=== PATIENT | male | born 1990 | race Caucasian/White ===

== ENCOUNTER 2017-02-09 10:15 | Inpatient (IN) | payer OTHER ==
[~2017-02-09] VITALS: Ht 177.8 cm; Wt 75.0 kg
--- NOTE | ~2017-02-09 | CR63 ---
[facility] A Service of [facility] & [facility] RADIOLOGY TEXT RESULTS PATIENT: JOSEFINA HUFF LOCATION: [place] [id number] : [birth year] UNIT #: [id number] AGE: [address]: Veronica Mackay MD SEX: M ORDER DR: [id number] [facility] [address] [facility]. [place], [place] [address] [id number] I MR#: [id number] Acc #: [id number] NAME: JOSEFINA HUFF. : 1990 SEX: M STUDY DATE/TIME: 02/10/2017 12:19 UNIT: [facility] ROOM: [facility] STUDY DESCRIPTION: CR Chest 2 View Attending Physician: Veronica Mackay M.D. Ordering Physician: Veronica Mackay M.D. MEDICAL IMAGING REPORT This report is preliminary unless electronic signature is present EXAM Chest x-ray 02/10/2017 HISTORY 26-year-old male, hospital inpatient with 1-day history of nausea, vomiting and dehydration. Hypokinesia and leukocytosis. Reported opiate withdrawal. TECHNIQUE AP and lateral upright chest series. FINDINGS The lungs are expanded and clear. No visible pulmonary infiltrate or pleural effusion. Heart size and pulmonary vascularity are within normal limits. IMPRESSION Negative chest. Dictated by... Yogesh Barragan M.D. THIS IS AN ELECTRONICALLY VERIFIED REPORT Yogesh Barragan M.D. at 02/10/2017 5:46 PM RGW/tasneem TD: 02/10/2017 16:56 JOB #: [id number] MEDICAL IMAGING REPORT Page 1 of 1 COPY
--- NOTE | ~2017-02-09 | US67 ---
[facility] A Service [facility] RADIOLOGY TEXT RESULTS PATIENT: JOSEFINA HUFF LOCATION: [facility] [address] : [birth year] UNIT #: [id number] AGE: [address]: Joyce Sanchez MD SEX: M ORDER DR: [id number] [address] [address] [id number] I MR#: [id number] Acc #: [id number] NAME: JOSEFINA HUFF. : 1990 SEX: M STUDY DATE/TIME: 02/09/2017 13:27 UNIT: SEDOF ROOM: [facility] STUDY DESCRIPTION: Gallbladder Attending Physician: Joyce Sanchez M.D. Ordering Physician: Rachel Saleh M.D. Primary Care Physician: No Primary Care Physician MEDICAL IMAGING REPORT This report is preliminary unless electronic signature is present. EXAM Gallbladder sonogram. CLINICAL HISTORY 26-year-old male right upper quadrant pain, vomiting x2 days. History of substance abuse and alcohol abuse. Elevated white blood cell count. COMPARISON CT abdomen and pelvis, 02/09/2017. FINDINGS Real-time examination demonstrates the liver to be of normal size, shape, and echogenicity. No intra or extrahepatic ductal dilatation is identified. The gallbladder is free of stones or wall thickening. Common bile duct measures 3.1 mm. Visualized portions of the pancreas and right kidney appear normal. The right kidney measures 11 cm in length. No free fluid. Visualized vasculature unremarkable. IMPRESSION Normal gallbladder and right upper quadrant sonogram. Dictated by... Leroy Staton M.D. THIS IS AN ELECTRONICALLY VERIFIED REPORT Leroy Staton M.D. at 02/09/2017 11:07 PM DEONNA/zahida TD: 02/09/2017 21:09 JOB #: [id number] [facility] A Service [facility] RADIOLOGY TEXT RESULTS PATIENT: JOSEFINA HUFF LOCATION: [facility] 475- : [birth year] UNIT #: [id number] AGE: [address]: Joyce Sanchez MD SEX: M ORDER DR: MEDICAL IMAGING REPORT Page 1 of 1
--- NOTE | ~2017-02-09 | HP ---
Unit #: [id number] #: [id number] Patient: JOSEFINA HUFF [id number] [place] [id number] [facility]. [place], [place] [address] [id number] I MR#: [id number] NAME: JOSEFINA HUFF. ROOM: [facility] Age: 26 Sex: M Admission Date: 02/09/2017 : 1990 Attending Physician: Joyce Sanchez M.D. HISTORY AND PHYSICAL CHIEF COMPLAINT Vomiting and chest pain. HISTORY OF PRESENT ILLNESS The patient is a 26-year-old male with a past medical history of hepatitis C, gastritis, marijuana use, and IV drug use, who presented to [facility] for evaluation of the above. The patient has a history of IV heroin us. He has been going to the Suboxone clinic. He states that he has been clean for almost a year. He ran out of Suboxone two days ago. He states that he took some of his friend's Subutex. He woke up yesterday with nausea, vomiting, and abdominal pain. He states that he has had more than 10 bouts of nonbloody emesis within the past 24 hours. He denies any diarrhea. He states the abdominal pain is "everywhere." He describes it as "cramping." There are no exacerbating or alleviating factors. He states that he has had fever and chills. He has had an intermittently productive cough for the past couple of days as well. He also reports burning with urination. Upon arrival in the emergency department, pulse and blood pressure were 96 and 131/88, respectively, and oxygen saturation 100%. CT of the abdomen and pelvis was done and negative. Right upper quadrant ultrasound was normal. Laboratory is notable for white blood cell count of 41.1. Urine toxicology screen is positive for marijuana. Potassium is 3.3 and BUN and creatinine 26 and 1.6, respectively. He was given one liter of normal saline, as well as 4 mg of Zofran, a total of 25 mg of Phenergan, 40 mg of Protonix, and 2 liters of normal saline. He was transferred to [facility] for admission. PAST MEDICAL HISTORY 1. Admission to [facility] in 2016 for MRSA bacteremia (no records). 2. Hepatitis C. 3. History of IV drug use, currently receiving Suboxone. PAST SURGICAL HISTORY EGD on December 04, 2009, showed mild to moderate erosive gastritis. SOCIAL HISTORY Patient lives with his mom. He states that his last IV drug use was almost a year ago. He denies alcohol use. He reports occasional marijuana use. He denies daily marijuana use. He is currently unemployed. He smokes a pack of cigarettes daily. FAMILY HISTORY Unit #: [id number] #: [id number] Patient: JOSEFINA HUFF Notable for his mother having substance abuse issues. ALLERGIES No known allergies. HOME MEDICATIONS Suboxone daily. REVIEW OF SYSTEMS A complete review of systems is negative except as indicated in the HPI. PHYSICAL EXAMINATION VITAL SIGNS: Temperature is 97.7, pulse 96, respirations 20, blood pressure 131/88, and oxygen saturation 100% on room air. GENERAL: Patient is a male who is awake, alert, and in no acute distress. HEENT: Head is atraumatic. Mucous membranes are dry. NECK: Supple. Trachea is midline. CARDIOVASCULAR: Regular rate and rhythm. LUNGS: Clear to auscultation bilaterally with no increased work of breathing. ABDOMEN: Soft and nontender with bowel sounds present in all four quadrants. EXTREMITIES: Nontender with no pedal edema. NEUROLOGIC: Patient is awake and alert. He follows commands. PSYCHIATRIC: Mood and affect are normal. Patient is cooperative. SKIN: Skin of examined areas is warm and dry. DIAGNOSTIC STUDIES LABORATORY: Urinalysis notable for 2+ protein and 1+ ketones. Urine toxicology screen positive for marijuana. Complete blood count notable for white blood cell count of 41.1 with 13% bands and hemoglobin and hematocrit 17.8 and 50.9, respectively. Comprehensive metabolic panel notable for potassium of 3.3, chloride 96, glucose 165, BUN and creatinine 26 and 1.6, respectively, AST and ALT are 63 and 71, respectively, alkaline phosphatase 96, total bilirubin 3.4, total protein 8.8, and albumin is 5.2. Amylase and lipase are normal. Blood alcohol level is less than 5. IMAGING: CT of the abdomen and pelvis shows nothing acute. Right upper quadrant ultrasound is normal. ASSESSMENT The patient is a 26-year-old male with: 1. Nausea and vomiting possibly secondary to opiate withdrawal. The patient ran out of Suboxone two days ago. 2. Abdominal pain with negative CT and ultrasound. 3. Leukocytosis. The patient does appear to be dehydrated. He does have bandemia with 13% bands noted on differential. Urinalysis is negative. CT is not showing anything acute. He does report cough. He did not receive antibiotics in the emergency department. 4. Hypokalemia with potassium of 3.3. 5. Acute kidney injury with BUN and creatinine 26 and 1.6, respectively. Creatinine was 1.1 on December 14, 2013. It is 1.6 today. 6. Transaminitis likely secondary to hepatitis C. 7. Hepatitis C. 8. History of gastritis. 9. Marijuana use. Unit #: [id number] #: [id number] Patient: JOSEFINA HUFF 10. History of IV drug use, currently on Suboxone. 11. Tobacco abuse. PLAN 1. Admit for observation. 2. Normal saline at 125 mL/hour. 3. Advance diet to clear liquids as tolerated. 4. P.r.n. Zofran. 5. Protonix 40 mg IV daily. 6. Replace potassium. 7. Check magnesium level. 8. Chest x-ray for further evaluation of leukocytosis. 9. Blood cultures x2 for further evaluation of leukocytosis. 10. Zofran pending further workup. 11. Opiate withdrawal protocol. 12. Get records from [facility]. 13. Repeat labs in the morning including magnesium. 14. SCDs for DVT prophylaxis. 15. Additional workup and consultants based on above. 1. Dictated by Stephanie Corcoran/kimmy TD: 02/09/2017 21:47 JOB #: [id number] HISTORY AND PHYSICAL Page 1 of 1 X Joyce Sanchez MD X HISTORY AND PHYSICAL
--- NOTE | ~2017-02-09 | CT4 ---
[facility] A Service of [facility] & [facility] RADIOLOGY TEXT RESULTS PATIENT: JOSEFINA HUFF LOCATION: [place] [address] : [birth year] UNIT #: [id number] AGE: [address]: Veronica Mackay MD SEX: M ORDER DR: [id number] [place] [id number] I MR#: [id number] Acc #: [id number] NAME: JOSEFINA HUFF. : 1990 SEX: M STUDY DATE/TIME: 02/09/2017 12:46 UNIT: SEDOF ROOM: [id number] STUDY DESCRIPTION: CT Abd and Pelv Wo Cont Attending Physician: Joyce Sanchez M.D. Ordering Physician: Rachel Saleh M.D. Primary Care Physician: Primary Care Physician No MEDICAL IMAGING REPORT This report is preliminary unless electronic signature is present. EXAM CT abdomen and pelvis without contrast, 02/09/2017 12:46 hours HISTORY Vomiting and chest pain since yesterday morning. Markedly elevated white blood cell count at 41.1 today. Abnormal chem 7. History of hepatitis C and gastritis. COMPARISON CT abdomen and pelvis, 12/02/2009 TECHNIQUE Helical noncontrasted images were obtained from the lung bases through the pubic symphysis without oral or intravenous contrast. Sagittal and coronal reconstructions were performed. Total exam DLP 741 mGy-cm This CT exam was performed with one or more of the following radiation dose reduction techniques: automatic exposure control, adjustment of mA and/or kV according to patient size, and iterative reconstruction. FINDINGS Images through the lung bases are clear. There are no effusions. The distal esophagus is normal. Images through the abdomen demonstrate a normal-sized liver with no focal liver lesion on this noncontrasted exam. The spleen, pancreas, gallbladder and bile ducts are normal. The adrenal glands are normal. The kidneys are normal in size with no mass or stones seen. There is no ureterectasis or ureteral stone. The bladder is normal. Unopacified stomach is somewhat contracted but normal in appearance. There is no small bowel distension or small bowel wall thickening. The appendix is normal. The colon is normal. STS. [facility] A Service of [facility] RADIOLOGY TEXT RESULTS PATIENT: JOSEFINA HUFF LOCATION: [facility] [id number] : [birth year] UNIT #: [id number] AGE: [address]: Veronica Mackay MD SEX: M ORDER DR: CT pelvis demonstrates a normal appearance to the bladder, seminal vesicles, prostate and rectum. There is no adenopathy or ascites. IMPRESSION Normal noncontrasted CT of the abdomen and pelvis. Dictated by... Katy Vasquez M.D. THIS IS AN ELECTRONICALLY VERIFIED REPORT Katy Vasquez M.D. at 02/10/2017 9:27 AM Eve TD: 02/09/2017 19:08 JOB #: [id number] MEDICAL IMAGING REPORT Page 1 of 1
--- NOTE | ~2017-02-09 | DS ---
Unit #: [id number] #: [id number] Patient: JOSEFINA GOLDEN [id number] [place], [place] [address] [id number] I MR#: [id number] NAME: JOSEFINA GOLDEN. ROOM: [facility] Age: 26 Sex: M Admission Date: 02/10/2017 : 1990 Discharge Date: 02/11/2017 Attending Physician: Veronica Mackay M.D. Primary Care Physician: No Primary Care Physician DISCHARGE SUMMARY PRINCIPAL DIAGNOSES 1. Intractable nausea/vomiting, likely secondary to acute opiate withdrawal, plus or minus viral gastroenteritis, plus or minus anxiety induced. 2. Leukocytosis, question gastroenteritis related versus reactive with negative workup. 3. Acute opiate withdrawal. 4. Acute kidney injury, prerenal resolved. Discharge creatinine 1.0. 5. Muscular abdominal pain. 6. Hepatitis C. 7. A history of polysubstance abuse including amphetamines and heroin. 8. Marijuana use. 9. Tobaccoism. 10. Hypokalemia. CONSULTANTS None. PROCEDURES 1. CT scan of abdomen and pelvis without contrast on February 09, 2017 which was normal. 2. Right upper quadrant ultrasound on February 09, 2017 which was also normal. 3. Chest x-ray on February 10, 2017 which was normal. CLINICAL HISTORY AND HOSPITAL COURSE Mr. Golden is a 26-year-old male who presents to the emergency department with intractable nausea, vomiting and chest pain. Please refer to H and P for further details. He developed 10 bouts of nonbloody emesis after missing two Suboxone treatments which he receives as an outpatient. In the emergency room, he was found to have a white blood cell count of 41,000. He was also mildly hypokalemic. He does have a history of MRSA bacteriemia with this history of IV drug abuse approximately a year ago and thus he was admitted. Due to his elevated white blood cell count, he was placed in empiric Zosyn and vancomycin. However I will note he remained afebrile throughout hospitalization. The following morning the patient's white blood cell count had decreased from 41,000 with 13% bands down to 28,000 without bands. Today white blood cell count is now down to 15.7 with 2% bands. Vancomycin is discontinued given blood cultures were negative. I have continued him on Zosyn but I am uncertain a source of infection. CT scan of the abdomen, right upper quadrant ultrasound, chest x-ray have all been Unit #: [id number] #: [id number] Patient: JOSEFINA GOLDEN A unremarkable as was urinalysis. I am going to hesitantly complete a short course of oral antibiotics as an outpatient. Patient continues to complain primarily more of nausea. He has not had many episodes of emesis and he is refusing to eat. He states simply he is too worried he is going to vomit and thus he will not eat. However, given he has remained afebrile he clinically appears to be improving. I have discussed with him the need to increase his diet both here on an outpatient basis. Patient did develop what appears to be symptoms of acute opiate withdrawal during hospitalization but he is refusing any sort of treatment and wants to return to the Suboxone clinic. This may be a component of his nausea as well. He has also been asking for IV pain meds, IV Phenergan, IV Ativan and none of which are appropriate for his current state. He will be discharged home later today. DISCHARGE CONDITION Is stable. DISCHARGE STATUS Discharge to home. DISCHARGE MEDICATIONS 1. Ciprofloxacin 500 mg p.o. b.i.d. for five days. 2. Zofran 4 mg p.o. q.6 h. p.r.n. for nausea/vomiting. 3. Suboxone 2 mg/0.5 mg one daily. DISCHARGE INSTRUCTIONS 1. Patient was instructed to continue to increase his diet as tolerated. 2. He can follow up with his primary care provider next week. Dictated by... Veronica Mackay M.D. [facility]/ruben TD: 02/13/2017 15:22 JOB #: [id number] DISCHARGE SUMMARY Page 1 of 1 X Veronica Mackay MD DISCHARGE SUMMARY
[~2017-02-09 10:15] MED LIST: CIPRO PO; NO MEDICATIONS; PHENERGAN PO; PREVACID PO; PRILOSEC20 MG PO; VOLTAREN75 MG PO; ZOFRAN PO
[2017-02-09] MEDS ORDERED: SUBOXONE 2 MG-1 EACH SL (10:27)
[2017-02-09 11:28] LABS: BASOPHIL# 0.1 X10e3 (0-0.3); BASOPHIL% 0.2 % (0-2.5); HEMATOCRIT 50.9 % (38.0-50.0); HEMOGLOBIN 17.8 gm/dL (13.0-16.0); LYMPHOCYTE# 1.2 X10e3 (1.0-3.5); LYMPHOCYTE% 2.9 % (17.0-45.0); MEAN CELL VOLUME 85.8 FL (83-96); MEAN CORPUSCULAR HEMOGLOBIN 30.1 PG (28-34); MEAN CORPUSCULAR HGB CONC 35.1 g/dL (30-36); MEAN PLATELET VOLUME 7.9 FL (6.5-11.5); MONOCYTE# 2.7 X10e3 (0-1.0); MONOCYTE% 6.7 % (3.0-12.0); NEUTROPHIL# 37.1 X10e3 (1.5-7.1); NEUTROPHIL% 90.2 % (40-75); PLATELET COUNT 264 X10e3 (140-420); RED BLOOD COUNT 5.93 X10e (3.90-5.60); RED CELL DISTRIBUTION WIDTH 14.1 % (11.0-15.5); WHITE BLOOD COUNT 41.1 X10e3 (4.0-10.5)
[2017-02-09 11:29] LABS: DIFF IND YES
[2017-02-09 11:49] LABS: ALBUMIN SERUM 5.2 g/dL (3.5-5.0); ALKALINE PHOSPHATASE 96 U/L (32-92); ALT (SGPT) 71 U/L (10-40); AMYLASE 12 U/L (0-46); AST (SGOT) 63 U/L (10-42); BILIRUBIN, DIRECT 1.1 mg/dL (0.0-0.2); BILIRUBIN,INDIRECT 2.3 mg/dL (0.0-0.9); BILIRUBIN,TOTAL 3.4 mg/dL (0.2-2.0); BLOOD UREA NITROGEN 26 mg/dL (9-23); BUN/CREATININE RATIO 16.25; CALCIUM SERUM 10.1 mg/dL (8.4-10.2); CARBON DIOXIDE 29 mmol/L (22-31); CHLORIDE 96 mmol/L (100-111); CREATININE SERUM 1.6 mg/dL (0.6-1.4); GLOM FILT RATE Estimated 57.8 mL/min (>60); GLUCOSE FASTING 165 mg/dL (70-110); LIPASE 22 U/L (22-51); POTASSIUM 3.3 mmol/L (3.5-5.1); PROTEIN TOTAL SERUM 8.8 g/dL (6.0-8.3); SODIUM 140 mmol/L (135-145)
[2017-02-09 12:00] LABS: ALCOHOL BLOOD <5 mg/dL (0)
[2017-02-09 12:02] LABS: PLATELET ESTIMATE NORMAL (NORMAL); RBC NORMAL YES
[2017-02-09 12:10] LABS: URINE SOURCE CLEAN CATCH
[2017-02-09 12:12] LABS: URINE APPEARANCE CLEAR; URINE BILIRUBIN NEG (NEG); URINE BLOOD NEG (NEG); URINE COLOR YELLOW; URINE GLUCOSE NEG (NORM); URINE KETONE 1+ (NEG); URINE LEUKOCYTE ESTERASE NEG (NEG); URINE NITRATE NEG (NEG); URINE PH 8.5 (5-8); URINE PROTEIN 2+ (NEG)
[2017-02-09 12:14] LABS: MICRO INDICATED? YES
[2017-02-09 12:22] LABS: AMPHETAMINE NEG (NEG); BARBITURATES NEG (NEG); BENZODIAZEPINES NEG (NEG); COCAINE NEG (NEG); MARIJUANA POS (NEG); OPIATES NEG (NEG); TRICYCLIC ANTIDEPRESSANTS NEG (NEG); U METHADONE NEG (NEG)
[2017-02-09 12:35] LABS: CULTURE INDICATED? NO; URINE BACTERIA NEG (NEG); URINE RBC 0-2 /[HPF] (0-2); URINE WBC 0-2 /[HPF] (0-5)
[2017-02-10 04:10] LABS: BASOPHIL% 0.2 % (0-2.5); EOSINOPHIL% 0.1 % (0.0-7.0); HEMATOCRIT 41.1 % (38.0-50.0); HEMOGLOBIN 14.1 gm/dL (13.0-16.0); LYMPHOCYTE# 1.7 X10e3 (1.0-3.5); MEAN CELL VOLUME 86.2 FL (83-96); MEAN CORPUSCULAR HEMOGLOBIN 29.6 PG (28-34); MEAN CORPUSCULAR HGB CONC 34.4 g/dL (30-36); MEAN PLATELET VOLUME 7.8 FL (6.5-11.5); MONOCYTE# 1.7 X10e3 (0-1.0); MONOCYTE% 6.2 % (3.0-12.0); NEUTROPHIL# 24.4 X10e3 (1.5-7.1); NEUTROPHIL% 87.5 % (40-75); PLATELET COUNT 220 X10e3 (140-420); RED BLOOD COUNT 4.77 X10e (3.90-5.60); WHITE BLOOD COUNT 27.9 X10e3 (4.0-10.5)
[2017-02-10 04:11] LABS: DIFF IND NO
[2017-02-10 04:33] LABS: ALBUMIN SERUM 3.8 g/dL (3.5-5.0); BILIRUBIN,TOTAL 2.5 mg/dL (0.2-2.0); CALCIUM SERUM 8.4 mg/dL (8.4-10.2); CREATININE SERUM 1.1 mg/dL (0.6-1.4); GLOM FILT RATE Estimated 90.9 mL/min (>60); MAGNESIUM 1.7 mg/dL (1.6-3.0); POTASSIUM 3.5 mmol/L (3.5-5.1); PROTEIN TOTAL SERUM 6.2 g/dL (6.0-8.3)
[2017-02-11 10:29] LABS: BASOPHIL# 0.1 X10e3 (0-0.3); BASOPHIL% 0.5 % (0-2.5); EOSINOPHIL# 0.1 X10e3 (0-0.7); EOSINOPHIL% 0.3 % (0.0-7.0); HEMATOCRIT 42.4 % (38.0-50.0); HEMOGLOBIN 14.7 gm/dL (13.0-16.0); LYMPHOCYTE# 4.3 X10e3 (1.0-3.5); LYMPHOCYTE% 27.2 % (17.0-45.0); MEAN CELL VOLUME 87.6 FL (83-96); MEAN CORPUSCULAR HEMOGLOBIN 30.3 PG (28-34); MEAN CORPUSCULAR HGB CONC 34.6 g/dL (30-36); MEAN PLATELET VOLUME 8.2 FL (6.5-11.5); MONOCYTE# 1.4 X10e3 (0-1.0); MONOCYTE% 8.7 % (3.0-12.0); NEUTROPHIL# 9.9 X10e3 (1.5-7.1); NEUTROPHIL% 63.3 % (40-75); PLATELET COUNT 179 X10e3 (140-420); RED BLOOD COUNT 4.84 X10e (3.90-5.60); RED CELL DISTRIBUTION WIDTH 14.2 % (11.0-15.5); WHITE BLOOD COUNT 15.7 X10e3 (4.0-10.5)
[2017-02-11 10:30] LABS: DIFF IND YES
[2017-02-11 11:21] LABS: PLATELET ESTIMATE NORMAL (NORMAL); RBC NORMAL YES
[2017-02-11 11:26] LABS: CALCIUM SERUM 8.5 mg/dL (8.4-10.2); MAGNESIUM 2.1 mg/dL (1.6-3.0); POTASSIUM 3.6 mmol/L (3.5-5.1)
[2017-02-11] MEDS ORDERED: ZOFRAN PO (15:40)
[2017-02-11] MEDS ORDERED: CIPRO PO (15:41)
== END 2017-02-11 16:50 | disposition home or self-care (01) | DRG 897 ==
LOC: SED 10:15 → C4C 15:40 → SED 15:40 → SEDOF 15:40 → C4C 19:32 → SEDOF 20:00 → SED 20:00 → C4C 02-10 07:36 → SEDOF 02-10 09:47 → UNDODEPER 02-10 19:06 → C4C 02-11 16:50
PROVIDERS: Family Medicine; Internal Medicine; Student in an Organized Health Care Education/Training Program
DX: F11.23 Opioid dependence with withdrawal (principal); N17.9 Acute kidney failure, unspecified; R11.2 Nausea with vomiting, unspecified; R10.9 Unspecified abdominal pain; B19.20 Unspecified viral hepatitis C without hepatic coma; F17.210 Nicotine dependence, cigarettes, uncomplicated; E87.6 Hypokalemia; E86.0 Dehydration; A08.4 Viral intestinal infection, unspecified; F12.90 Cannabis use, unspecified, uncomplicated; Z81.4 Family history of other substance abuse and dependence; F41.9 Anxiety disorder, unspecified
CPT/HCPCS: 36415; 71020; 74176; 76705; 80048; 80053; 80076; 80307; 81003; 82150; 83690; 83735; 85025; 87040; 96361; 96374; 99285; C9113; G0480; J1885; J2060; J2405; J2543; J2550; J2765; J3370